=== PATIENT | female | born 1945 | race Hispanic/Latino ===

== ENCOUNTER 2018-03-06 07:55 | Day surgery (SDC) | payer MEDICARE, OTHER ==
[~2018-03-06 07:55] MED LIST: ANCEF/STERILE WATER 2 GM/20 ML 2 GM/20 ML SYRINGE IV NR; NACL 0.9% 1000 ML 1,000 ML IV SCH
[2018-03-06 09:23] LABS: Basophils % (Auto) 0.7 % (0.0-1.8); Eosinophils # (Auto) 0.2 K/mm3 (0.0-0.4); Eosinophils % (Auto) 3.5 % (0.0-4.3); Hematocrit 42.6 % (30.3-42.9); Lymphocytes # (Auto) 2.5 K/mm3 (1.2-5.4); Lymphocytes % (Auto) 38.2 % (13.4-35.0); Mean Corpuscular HGB Conc 35 % (30-34); Mean Corpuscular Hemoglobin 32 pg (28-32); Mean Corpuscular Volume 91 fl (79-97); Monocytes # (Auto) 0.9 K/mm3 (0.0-0.8); Monocytes % (Auto) 13.7 % (0.0-7.3); Platelet Count 290 K/mm3 (140-440); Red Blood Count 4.67 M/mm3 (3.65-5.03)
[2018-03-06 09:35] LABS: BUN/Creatinine Ratio 17; Blood Urea Nitrogen 12 mg/dL (7-17); Calcium 9.6 mg/dL (8.4-10.2); Hemolysis Index 14
[2018-03-06 09:56] LABS: INR 0.88 (0.87-1.13); Partial Thromboplastin Time 27.7 Sec. (24.2-36.6)
[2018-03-06] MEDS ORDERED: HEPARIN/NS 5000 UNIT/500ML(CATH LAB) 1,000 ML IR ONE (15:58)
[2018-03-06] MEDS ORDERED: ANCEF/STERILE WATER 2 GM/20 ML 2 GM/20 ML SYRINGE IV ONE (15:59)
[2018-03-06] MEDS: VERSED ONE ×4 (16:13→17:28)
[2018-03-06] MEDS: SUBLIMAZE ONE ×4 (16:13→17:40)
[2018-03-06] MEDS: XYLOCAINE 2% INFILTRATI ONE ×2 (16:16→16:58)
[2018-03-06] MEDS ORDERED: ZOFRAN ONE (16:20)
[2018-03-06] MEDS: HEPARIN 10,000 UNITS/10 ML ONE ×2 (16:27→16:59)
[2018-03-06] MEDS ORDERED: TORADOL ONE (17:00)
--- NOTE | 2018-03-06 18:01 | Post Operative Note ---
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 Procedure: #1 deployment of left common iliac vein stent with balloon angioplasty #2 deployment of right common iliac vein stent with balloon angioplasty #3 intravascular ultrasound of the inferior vena cava, left common iliac vein, left external iliac vein, right common iliac vein, right external iliac vein #4 bilateral lower extremity venogram #5 inferior venacavogram #6 insertion of catheter into the vena cava left groin approach #7 insertion of catheter into the vena cava right groin approach #8 duplex guided cannulation of both right and left superficial femoral veins Anesthesia: other (moderate sedation: Beginning time 1613 ending time 1800 total sedation time 107 minutes) Surgeon: PEDRO DUNNE Estimated blood loss: minimal Pathology: none Condition: stable Disposition: same day
--- NOTE | 2018-03-06 18:10 | Short Stay Summary ---
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 - History H&P: obtained from office - Allergies and Medications Current Medications: Allergies ceftriaxone Allergy (Severe, Verified 03/06/18 08:24) Unknown chest pain moxifloxacin [From Avelox] Allergy (Severe, Verified 03/06/18 08:24) Unknown chest pain omeprazole Allergy (Intermediate, Verified 03/06/18 08:24) Unknown abd pain morphine Adverse Reaction (Verified 03/06/18 08:24) Vomiting Home Medications Medication Instructions Recorded Confirmed Last Taken Type Aspirin BABY CHEW TAB 81 mg PO DAILY 03/06/18 03/06/18 03/05/18 History 81 mg Calcium Carbonate [Calcium] 600 mg PO DAILY 03/06/18 03/06/18 03/05/18 History 600 mg Cetirizine HCl [Allergy Relief] 10 mg PO DAILY 03/06/18 03/06/18 03/05/18 History Cholecalciferol Vit D3 [Vitamin D3] 1,000 unit PO QDAY 03/06/18 03/06/18 History 1000 Gabapentin [Neurontin] 400 mg PO DAILY 03/06/18 03/06/18 03/05/18 History 400 mg Hydrochlorothiazide 25 mg PO DAILY 03/06/18 03/06/18 03/06/18 History 25 mg [place]-3/Dha/Epa/Fish Oil [Fish Oil 1 each PO DAILY 03/06/18 03/06/18 03/05/18 History 1,360 mg Softgel] 1 capsule Potassium 99 mg PO DAILY 03/06/18 03/06/18 03/05/18 History 99 mg Simvastatin [Zocor TAB] 40 mg PO QHS 03/06/18 03/06/18 03/05/18 History 40 mg Active Medications Cefazolin Sodium (Ancef/Sterile Water 2 Gm/20 Ml) 2 gm in 20 mls @ 80 mls/hr IV PREOP NR; Protocol Stop: 03/06/18 23:59 Last Admin: 03/06/18 16:10 Dose: 20 mls Sodium Chloride (Nacl 0.9% 1000 Ml) 1,000 mls @ 42 mls/hr IV DIRECT FUENTES - Brief post op/procedure progress note Date of procedure: 03/06/18 Procedure: Pre-op diagnosis: 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 Procedure: #1 deployment of left common iliac vein stent with balloon angioplasty #2 deployment of right common iliac vein stent with balloon angioplasty #3 intravascular ultrasound of the inferior vena cava, left common iliac vein, left external iliac vein, right common iliac vein, right external iliac vein #4 bilateral lower extremity venogram #5 inferior venacavogram #6 insertion of catheter into the vena cava left groin approach #7 insertion of catheter into the vena cava right groin approach #8 duplex guided cannulation of both right and left superficial femoral veins Anesthesia: other (moderate sedation: Beginning time 1613 ending time 1800 total sedation time 107 minutes) Surgeon: PEDRO UDNNE Estimated blood loss: minimal Pathology: none Condition: stable Disposition: same day - Disposition Condition at discharge: Stable Disposition: [id number] TO HOME OR SELFCARE - Discharge Diagnoses (1) Chronic venous hypertension (idiopathic) with inflammation of bilateral lower extremity Status: Chronic (2) Stricture of vein Status: Chronic Short Stay Discharge Plan Activity: advance as tolerated Weight Bearing Status: Full Weight Bearing Diet: regular Wound: keep clean and dry Special Instructions: no heavy lifting Follow up with: MATT WHITMAN MD [Other] - 7 Days PEDRO DUNNE MD [Staff Physician] - 14 Days Prescriptions: HYDROcodone/ACETAMINOPHEN [[place] 5-325 Tablet] 1 each PO Q6H #14 tablet
[2018-03-06] MEDS ORDERED: NORCO 5/325 PO ONE (18:30)
[2018-03-06 18:46] VITALS: BP 161/75
--- NOTE | 2018-03-11 18:28 | Operative Report ---
PREOPERATIVE DIAGNOSES: Stricture of vein, May-Thurner syndrome, chronic venous hypertension with inflammation bilaterally. POSTPROCEDURE DIAGNOSES: Stricture of vein, May-Thurner syndrome, chronic venous hypertension with inflammation bilaterally. OPERATIVE PROCEDURES: 1. Deployment of left common iliac vein stent with balloon angioplasty. 2. Deployment of right common iliac venous stent with balloon angioplasty. 3. Intravascular ultrasound of the inferior vena cava, left common iliac vein, the left external iliac vein, the right common iliac vein, and the right external iliac vein. 4. Bilateral lower extremity venography. 5. Inferior venacavogram. 6. Insertion of catheter into the vena cava, left groin approach. 7. Insertion of catheter into the vena cava, right groin approach. 8. Duplex guided cannulation of both right and left superficial femoral veins. SURGEON: Jin Dumont MD ANESTHESIA: Moderate sedation. START TIME: 1613. END TIME: 1800. Total moderate sedation time 107 minutes. ESTIMATED BLOOD LOSS: Minimal. CONDITION: Stable. COMPLICATIONS: None. INSTRUMENT COUNTS: Correct. SPECIMENS: None. SURGICAL FINDINGS: Significant stenosis with flattening of the left common iliac vein by the right common iliac artery consistent with the May-Thurner syndrome, intravascular ultrasound evidence bilaterally, significant venous narrowing of both the proximal external iliac and distal common iliac veins, both treated successfully by deployment of bilateral Wallstent and venoplasty with resolution of stenosis. DESCRIPTION OF PROCEDURE: The patient in the supine position with the patient slightly frog legged, but in supine position. Both groins and upper thighs were then prepped and draped using standard sterile technique. A duplex guidance was used to identify the proximal superficial femoral vein and through anesthetized skin and a small stab incision, a micropuncture wire was advanced directly into that vein with a microwire advanced into the external iliac. A small microsheath was placed and a 5-Martiniquais introducer was placed to follow over a Bentson wire. Wire was advanced into the inferior vena cava. Contrast was injected, which showed that there were several areas of dilatation in the proximal common femoral vein and several areas of dilatation in the external iliac vein with some flattening of the proximal left common iliac vein consistent with May-Thurner. The vena cava was widely patent. I then heparinized the patient upsized to an 8-Martiniquais introducer and advanced intravascular ultrasound into the distal inferior vena cava and using pullback technique, interrogated the entire inferior vena cava in both common and external iliacs on the left. These studies revealed significant flattening and deformation of the proximal common iliac with a dilatation below and considerable at least 40%-50% narrowing of that vein consistent with May-Thurner syndrome. The distal common was also narrowed with a stenosis of approximately 40%, which resulted in dilatation of the mid external iliac vein. The proximal external iliac vein was also affected by narrowing. Using the markers on the IVUS, appropriate lengths from the confluence to the most distal portion of the stenosis was measured and it was felt that an 18 x 90 Wallstent would sufficiently expand the vein to alleviate her symptoms of severe swelling despite venous ablation. I then upsized to a 10-Martiniquais introducer on the left. A similar approach was made on the right side with a percutaneous imaging and access obtained into the proximal superficial femoral vein. A 5-Martiniquais introducer was placed. Venography was performed, which showed lesser amounts of narrowing, but nonetheless, the vein was small through the pelvis. An 8-Martiniquais introducer was placed and IVUS was advanced, which confirmed a more stenosis on the right consistent with May-Thurner type syndrome. The vein itself was narrowed in several places with prestenotic dilatation consistent with a pelvic venous occlusive disease. There was some collateralization of pelvic outflow. This confirmed venous hypertension. The 8-Martiniquais introducer was placed with a 10-Martiniquais introducer. Initially, I deployed the Wallstent on the left, crossing underneath the iliac artery and making sure that the left stent protruded into the very distal vena cava. The right stent was placed in a similar fashion, essentially at the same level, may be a millimeter or two below. Both stents were then posted with 16 balloons. Post-angioplasty intravenous ultrasounds were performed, which showed dramatic improvement in the caliber of all the veins and relief of the stenotic lesions. Venography confirmed patency. Both sheaths were then removed and counter pressure held for hemostasis. The patient tolerated the procedure well with radiographic and ultrasonographic evidence of resolution of the May-Thurner syndrome bilaterally. The patient was then returned to the recovery room in stable condition, having tolerated the procedure well. Sponge and needle counts were correct. JOB# [id number] [facility]
== END 2018-03-06 19:50 | disposition home or self-care (01) ==
LOC: CATHLABREC 07:55
PROVIDERS: ATTEND Surgery Vascular Surgery
DX: I87.1 Compression of vein (principal); I87.2 Venous insufficiency (chronic) (peripheral); I87.323 Chronic venous hypertension (idiopathic) with inflammation of bilateral lower extremity; E78.00 Pure hypercholesterolemia, unspecified; I10 Essential (primary) hypertension; M19.90 Unspecified osteoarthritis, unspecified site; E66.9 Obesity, unspecified; Z68.38 Body mass index [BMI] 38.0-38.9, adult; Z79.01 Long term (current) use of anticoagulants; Z79.82 Long term (current) use of aspirin; Z79.899 Other long term (current) drug therapy; Z88.1 Allergy status to other antibiotic agents; Z88.5 Allergy status to narcotic agent; Z88.8 Allergy status to other drugs, medicaments and biological substances; Z90.49 Acquired absence of other specified parts of digestive tract; Z90.710 Acquired absence of both cervix and uterus; Z85.3 Personal history of malignant neoplasm of breast; Z98.890 Other specified postprocedural states
CPT/HCPCS: 36415; 37238; 37239; 37252; 37253; 75822; 76937; 80048; 85025; 85610; 85730; 99156; 99157; C1725; C1753; C1769; C1876; C1894; J0690; J1644; J1885; J2250; J2405; J3010; J7030; Q9967